=== PATIENT | female | born 2005 | race Caucasian/White ===

== ENCOUNTER 2024-01-19 13:03 | Emergency (ER) | payer BC, SELFPAY ==
--- NOTE | 2024-01-19 13:14 | ED.URI ---
HPI - URI/Sore Throat General Chief Complaint: Upper Respiratory Infection Stated Complaint: Sore Throat/Cough Time Seen by Provider: 01/19/24 13:20 Source: patient, RN notes reviewed and old records reviewed Mode of arrival: ambulatory Limitations: no limitations History of Present Illness HPI Narrative: 18 year old female who [facility] with complaint of sore throat and cough which started yesterday. Patient also has hoarse raspy voice, denies any fevers, chills or sweats, or any body aches. Patient reports that she has taken some Ibuprofen and also took NyQuil last night before bed for her cough but it didn't help much. Patient has noted Post nasal drainage in throat on examination. MD elicited complaint: cough and sore throat Onset (ago): day(s) (day 2 of symptoms) Pain scale (0-10): 5 Description of mucous: clear Able to tolerate fluids by mouth: Yes Treatments prior to arrival: ibuprofen and other (NyQuil) Related Data Allergies Allergy/AdvReac Type Severity Reaction Status Date / Time No Known Allergies Allergy Verified 01/19/24 13:20 Review of Systems Review of Systems: CONSTITUTIONAL: Denies malaise, chills, sweats, or fever. EYES: Denies visual changes, redness, or discharge. ENT: Reports rhinorrhea, congestion, sinus pain, no otalgia and positive for sore throat. CARDIOVASCULAR: Denies chest pain, palpitations, or edema. RESPIRATORY: Reports cough.? Denies dyspnea. GASTROINTESTINAL: Denies abdominal pain, nausea, vomiting, diarrhea SKIN: Denies rash or itching. MUSCULOSKELETAL: Denies myalgia. NEUROLOGIC: Denies headache. All systems reviewed & are unremarkable except as noted in HPI and below PMFSH Past Medical History Medical History (Updated 01/19/24 @ 14:01 by Esthela Nolasco NP) Bilateral elbow fractures Fracture of right foot Fracture of right lower limb Strep throat Wrist fracture Social History Social History (Updated 01/19/24 @ 13:59 by Esthela Nolasco NP) Smoking status: Never smoker Alcohol intake: never Substance use type: does not use Occupation/Education: student Gender identity (if verbalized by the patient): Female Comments At time of signature, agree with nursing past medical, surgical, social and family history. There is no relevant family history pertinent to the presenting complaint Exam Narrative: GENERAL: Well-appearing, well-nourished, and in no acute distress. HEAD: Normocephalic EYES: PERRLA, conjunctivae clear ENT: Nares clear, turbinates edematous and erythematous, clear discharge. Mucous membranes moist. TM pearly reyez with dull light reflex bilaterally; no tragal tenderness. Oropharynx erythematous without lesions. Tonsils not enlarged and without exudate, no drooling,positive for hoarseness, no trismus, uvula midline.post nasal drainage present NECK: Supple. No lymphadenopathy CHEST: Clear to auscultation, breath sounds equal. No wheezing, rhonchi, rales, or stridor. No respiratory distress, speaks in full sentences.cough noted SAO2 100% on room air HEART: Regular rate and rhythm. No murmur heard. SKIN: Warm, dry, no rash. NEURO: Alert and oriented x3. PSYCH: Normal mood and affect Course Course Emergency Course: Patient is aware of diagnosis, understands and agrees to treatment plan.? Anticipatory guidance given.? Patient agrees to follow-up as directed and is aware of reasons to seek care at the emergency department. Portions of this record may have been created with voice recognition software Level of Care: Express Care Visit Vital Signs Vital signs: Reviewed MDM - URI/Sore Throat MDM Narrative Medical decision making narrative: Differential diagnosis considered: [place] virus, strep pharyngitis, allergic rhinitis, upper respiratory tract infection, sinusitis, rhinosinusitis, nasopharyngitis. viral pharyngitis, otitis media, otitis externa, pneumonia, bronchitis, viral cough syndrome, vir
[2024-01-19 13:15] VITALS: BP 113/73; PULSE 94; RESP 16; TEMP 37.1; O2SAT 100
== END 2024-01-19 13:47 | disposition home or self-care (01) ==
PROVIDERS: Emergency Provider Registered Nurse
DX: J02.9 Acute pharyngitis, unspecified (principal); R05.1 Acute cough
CPT/HCPCS: 87081; 87880; 99213; G0463